=== PATIENT | female | born 1960 | race Caucasian/White ===

== ENCOUNTER 2023-05-31 17:50 | Emergency (ER) | payer BC, SELFPAY ==
[2023-05-31 17:52] VITALS: BP 160/112; BMI 23.5
--- NOTE | 2023-05-31 22:21 | ED.MUSCINJ ---
HPI-Injury
General
Chief Complaint: Extremity Pain (non-traumatic)
Source: patient
Exam Limitations: none
Time Seen by Provider: 05/31/23 22:01
Travel History
Have you had any contact with someone who has COVID-19?: No
Do you have any symptoms of coronavirus? Fever > 100 degrees, chills, cough, shortness of breath, sore throat, loss of taste or smell, muscle aches, or headache?: No
History of Present Illness-Injury
Initial Injury comments:
62-year-old [id number] female presents complaining of left shoulder pain starting this morning. She fell getting out of bed and landed on her shoulder. She did not hit her head. No neck or back pain. No numbness to the hand. No other
complaints at this time
Past History
Past History
ED Past Medical History: Other (History of previous suicidal ideation/attempt, history of alcoholism.)
ED Past Surgical History: None
Social History
Tobacco: Non-smoker
Alcohol: Daily
Drug: None
Personal:
Living: with family
Employment: Not employed
Family History
Family History: Other (Noncontributory)
Phy Exam
Physical Exam
Physical Exam:
General: Well-appearing female no acute respiratory distress
HEENT:NC/AT
Heart: RRR, no murmurs
Lungs: CTA bilaterally
MSK: left shoulder swollen, tender diffusely about shoulder, spine nontender
Vascular: 2+ radial pulse left wrist
Neuro: Good sensation left arm
Injury Course
Orders/Labs/Results
Orders:
Orders
05/31/23 17:55
CR Shoulder, Trauma - Left Urgent
Reason For Exam: INJURY
05/31/23 22:20
Sling Left-Treatment ONCE
Ondansetron Orally Disint [Zofran Odt (Orally Disintegrating)] 4 mg PO NOW STA
MDM/Problems Addressed
Differential Diagnosis Includes:
Left shoulder pain after fall. Differential could include sprain versus fracture versus dislocation
I personally visualized x-rays of left shoulder which demonstrate comminuted fracture over the proximal humerus. Patient will be placed in a sling will be advised follow-up with orthopedics for further evaluation. She follows [facility].
*Critical Care Note
Total Time (30-74mins, 75-104mins- exclusive of procedures): Not Applicable
ED Attending Note
-
Portions of this chart may have been created with voice recognition software.� Occasional wrong word or��sound alike� substitutions may have occurred due to the inherent limitations of voice recognition software.
Discharge Plan
Departure
Patient Disposition: Home (Routine Discharge)
Date of Disposition: 05/31/23
Time of Disposition: 22:24
Patient with high blood pressure during this ER visit?: No
Discharge Problem:
Fracture of proximal end of humerus
Instructions: Muscle and Bone Pain (DC)
Prescriptions:
New
ondansetron 4 mg tablet,disintegrating
4 mg PO Q8H PRN (Reason: nausea and vomiting) Qty: 10 0RF
No Action
amoxicillin-pot clavulanate 1 TABLET tablet
1 tab PO Q12 Qty: 20 0RF
Saccharomyces boulardii 250 MG capsule
250 mg PO BID Qty: 20 0RF
Rx Instructions:
use while taking antibiotics
hydrocodone-acetaminophen 1 TABLET tablet
1 tab PO Q4HPRN PRN (Reason: pain) Qty: 10 0RF
acetaminophen [Tylenol Extra Strength] 500 MG tablet
500 mg PO Q6HPRN PRN (Reason: mild to moderate pain) Qty: 60 0RF
ibuprofen 400 MG tablet
400 mg PO Q6HPRN PRN (Reason: mild to moderate pain) Qty: 60 0RF
oxycodone 5 MG tablet
5 mg PO Q8HPRN PRN (Reason: severe pain) Qty: 10 0RF
Activity Restrictions/Additional Instructions:
Continue with your pain medicine you have at home. Use sling. Take Zofran if needed for nausea. Follow-up with your orthopedic doctor as planned
Interventions
Interventions:
*Risk Screen - Suicide Last Done: 05/31/23 17:52
*Neglect/Abuse Screening Last Done: 05/31/23 17:52
*ED COVID-19 Vaccine History Last Done: 05/31/23 17:52
[2023-05-31] MEDS: ZOFRAN ODT (ORALLY DISINTEGRATING) 4 MG PO (22:26)
== END 2023-05-31 22:47 | disposition home or self-care (01) ==
LOC: EMR 17:50
PROVIDERS: EMERGENCY PHYSICIAN Emergency Medicine; FAMILY PHYSICIAN Internal Medicine
DX: S42.202A Unspecified fracture of upper end of left humerus, initial encounter for closed fracture (principal); W06.XXXA Fall from bed, initial encounter
CPT/HCPCS: 99283; 73030